=== PATIENT | female | born 1960 | race Caucasian/White ===

== ENCOUNTER 2019-07-10 17:00 | Emergency (ER) | payer SELFPAY ==
[~2019-07-10] VITALS: Ht 157.5 cm; Wt 63.0 kg
[2019-07-10 17:00] VITALS: BP 134/77
--- NOTE | 2019-07-10 17:32 | NUR ---
PT TAKEN TO RESTROOM VIA WHEELCHAIR.
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
[2019-07-10] MEDS ORDERED: NACL 0.9% 1,000 ML IV ONE (18:00)
--- NOTE | 2019-07-10 18:34 | NUR ---
PT RESTING IN BED, GIRLFRIEND AT BEDSIDE
[2019-07-10 18:40] LABS: BASOPHILS # (AUTO) 0.1 K/uL (0.00-0.22); BASOPHILS % (AUTO) 0.6 % (0.0-2.0); EOSINOPHILS % (AUTO) 0.4 % (0.0-4.0); HEMATOCRIT 40.1 % (36-48); HEMOGLOBIN 13.5 g/dL (12.0-16.0); LYMPHOCYTES # (AUTO) 1.9 K/uL (2.5-16.5); LYMPHOCYTES % (AUTO) 15.7 % (20.5-51.1); MEAN CORPUSCULAR HEMOGLOBIN 30 pg (27-31); MEAN CORPUSCULAR HGB CONC 34 g/dL (33-37); MONOCYTES # (AUTO) 0.6 K/uL (0.8-1.0); NEUTROPHILS # (AUTO) 9.3 K/uL (1.8-7.7); NEUTROPHILS % (AUTO) 78.3 % (42.2-75.2); PLATELET COUNT (AUTO) 287 K/uL (140-450); RED BLOOD CELL COUNT(AUTO) 4.45 MIL/uL (4.20-5.40); RED CELL DISTRIBUTION WIDTH 12.6 % (11.6-13.7); WHITE BLOOD COUNT (AUTO) 11.9 K/uL (4.8-10.8)
--- NOTE | 2019-07-10 19:00 | NUR ---
REPORT GIVEN TO FREDDIE SHORT FOR CONTINUATION OF CARE
[2019-07-10 19:10] LABS: ALBUMIN 4.1 g/dL (3.4-5.0); ANION GAP 15.3 (8-16); ASPARTATE AMINOTRANSFERASE 18 U/L (15-37); CARBON DIOXIDE 25.1 mmol/L (21-32); CHLORIDE 113 mmol/L (98-107); CREATININE 0.7 mg/dL (0.6-1.3); GFR ARICAN-AMERICAN 110 mL/min (>90); GLUCOSE 103 mg/dL (74-106); POTASSIUM 3.4 mmol/L (3.5-5.1); SODIUM SERUM 150 mmol/L (136-145); UREA NITROGEN, BLOOD 18 mg/dL (7-18)
[2019-07-10 19:12] LABS: ACETAMINOPHEN < 0.5 ug/ml (10-30)
[2019-07-10 19:18] LABS: SALICYLATE 4.6 mg/dL (2.8-20.0)
[2019-07-10 20:01] LABS: BARBITURATE, URINE NEG. ng/ml (NEG <=200); BENZODIAZEPINE, URINE NEG. ng/mL (NEG <=200); CANNABINOID, URINE NEG. ng/mL (NEG <=50); COCAINE, URINE NEG. ng/mL (NEG <=300); OPIATE, URINE NEG. ng/mL (NEG <=2000); PHENCYCLIDINE SCREEN,URINE POS. ng/mL (NEG <=25)
[2019-07-10 20:03] LABS: APPEARANCE,URINE CLEAR (CLEAR); BILIRUBIN,URINE NEGATIVE (NEGATIVE); BLOOD, URINE 1+ (NEGATIVE); COLOR,URINE YELLOW (YELLOW); LEUKOCYTE ESTERASE ,URINE NEGATIVE (NEGATIVE); NITRITE, URINE NEGATIVE (NEGATIVE); UGLUCOSE NEGATIVE (NEGATIVE)
[2019-07-10 20:19] LABS: TOTAL BILIRUBIN 0.3 mg/dL (0.0-1.0)
[2019-07-10 20:23] LABS: WBC,URINE NONE SEEN /HPF (0-5)
[2019-07-10 20:45] VITALS: BP 129/84
--- NOTE | 2019-07-10 20:45 | NUR ---
PT DISCHARGED WITH PAPERWORK. NO MEDICATION RX PROVIDED. EDUCATED PT REGARDING D/C DIAGNOSIS AND INSTRUCTIONS. PT VERBALIZED UNDERSTANDING OF TEACHING. TOLD PT TO FOLLOW UP WITH PCP AND WHEN TO RETURN TO ED. PT VSS. ALL QUESTIONS ANSWERED.
== END 2019-07-10 20:45 | disposition home or self-care (01) ==
LOC: MED 17:00
DX: F15.90 Other stimulant use, unspecified, uncomplicated (principal); E86.0 Dehydration; R40.4 Transient alteration of awareness; F17.210 Nicotine dependence, cigarettes, uncomplicated; Z71.6 Tobacco abuse counseling
CPT/HCPCS: 36415; 70450; 71045; 80053; 80305; 81001; 82550; 84484; 85025; 93005; 96360; 96361; 99284; G0480; G0482; J7030; Q0092

== ENCOUNTER 2019-07-20 23:35 | Emergency (ER) | payer SELFPAY ==
[~2019-07-20] VITALS: Ht 160 cm; Wt 65.8 kg
[2019-07-20 23:37] VITALS: BP 143/112
[2019-07-20] MEDS ORDERED: ALBUTEROL 0.083% 2.5 MG/3 ML NEBU INH ONE (23:45)
[2019-07-20] MEDS ORDERED: predniSONE 20 MG TAB PO ONE (23:45)
[2019-07-20] MEDS ORDERED: ALBUTEROL SULFATE/IPRATROPIU 3 ML SOL IH ONE (23:45)
--- NOTE | 2019-07-20 23:49 | NUR ---
Respiratory Therapist at bedside for respiratory intervention.
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
[2019-07-21] MEDS ORDERED: KETOROLAC 60 MG/2 ML VIAL IM ONE (00:20)
--- NOTE | 2019-07-21 00:20 | NUR ---
Dr. Zelaya examining patient.
--- NOTE | 2019-07-21 00:42 | NUR ---
PT STATES SOME RELIEF OF PAIN AFTER RECEIVING MEDICATION. 7/10 SHARP CHEST PAIN. PT RESTING IN BED CALM AND PLEASANT. VSS. WILL CONTINUE TO MONITOR.
--- NOTE | 2019-07-21 01:25 | NUR ---
Patient discharged with v/s stable. Written and verbal after care instructions given and explained. Patient alert, oriented and verbalized understanding of instructions. Ambulatory with steady gait. All questions addressed prior to discharge. ID band removed. Patient advised to follow up with PMD. Rx of MOTRIN AND PREDNISONE given. Patient educated on indication of medication including possible reaction and side effects. Opportunity to ask questions provided and answered.
== END 2019-07-21 01:25 | disposition home or self-care (01) ==
LOC: MED 23:35
DX: R07.89 Other chest pain (principal); R06.02 Shortness of breath; J45.909 Unspecified asthma, uncomplicated; F17.200 Nicotine dependence, unspecified, uncomplicated; Z98.890 Other specified postprocedural states
CPT/HCPCS: 94640; 96372; 99283; J1885; J7512; J7613; J7620; 93005

== ENCOUNTER 2019-07-21 19:16 | Emergency (ER) | payer SELFPAY ==
[~2019-07-21] VITALS: Ht 147.3 cm; Wt 66.7 kg
[2019-07-21 19:20] VITALS: BP 155/109
--- NOTE | 2019-07-21 19:30 | NUR ---
Note undone in EDM - 07/21/19 at 2018 by [facility] PT BIBA C/O SOB X 2 DAYS. LUNG SOUNDS CLEAR ALL THORUGHOUT. SPO2 98% 2LNC. NO RESP DISTRESS NOTED. PT RATES PAIN 10/10 AND DESCRIBES IT PRESSURE STABBING FEELING. VSS. DENIES ANY TURAMA OR INJURY OR FALLS. PT STATES HER PAIN LOCATION IS UNDERNEATH THE BREAST LINE. PT ALSO STATES SHE GETS SOB D/T PAIN. NKA. PMH: ASTHMA.
--- NOTE | 2019-07-21 19:30 | NUR ---
PT BIBA C/O SOB X 2 DAYS. LUNG SOUNDS CLEAR ALL THORUGHOUT. SPO2 98% 3LNC. NO RESP DISTRESS NOTED. PT RATES PAIN 10/10 AND DESCRIBES IT PRESSURE STABBING FEELING. VSS. DENIES ANY TURAMA OR INJURY OR FALLS. PT STATES HER PAIN LOCATION IS UNDERNEATH THE BREAST LINE. PT ALSO STATES SHE GETS SOB D/T PAIN. NKA. PMH: ASTHMA.
--- NOTE | 2019-07-21 19:50 | NUR ---
DR. NUNEZ BEDSIDE EVALUATING PT
[2019-07-21] MEDS ORDERED: KETOROLAC 60 MG/2 ML VIAL IM ONE (19:55)
--- NOTE | 2019-07-21 20:00 | NUR ---
XR AT BEDSIDE.
--- NOTE | 2019-07-21 20:29 | NUR ---
Patient being evaluated by DR. NUNEZ at bedside.
[2019-07-21] MEDS ORDERED: MORPHINE SULFATE 4 MG/ML SYR IM ONE (20:35)
--- NOTE | 2019-07-21 21:20 | NUR ---
Patient discharged with v/s stable. Written and verbal after care instructions given and explained. Patient alert, oriented and verbalized understanding of instructions. Ambulatory with steady gait. All questions addressed prior to discharge. ID band removed. Patient advised to follow up with PMD. Rx of NORCO given. Patient educated on indication of medication including possible reaction and side effects. Opportunity to ask questions provided and answered. TAXI VOUCHER AND CLOTHING PROVIDED AT THIS TIME.
[2019-07-21 21:21] VITALS: BP 155/109
== END 2019-07-21 21:20 | disposition home or self-care (01) ==
LOC: MED 19:16
DX: R07.89 Other chest pain (principal); J45.909 Unspecified asthma, uncomplicated; F17.200 Nicotine dependence, unspecified, uncomplicated; F15.90 Other stimulant use, unspecified, uncomplicated
CPT/HCPCS: 71045; 96372; 99283; J1885; J2270

== ENCOUNTER 2019-07-28 12:34 | Inpatient (IN) | payer MEDICAID ==
[~2019-07-28] VITALS: Ht 142.2 cm; Wt 63.5 kg
[2019-07-28 12:37] VITALS: BP 110/69
--- NOTE | 2019-07-28 12:42 | NUR ---
59 Y/O FEMALE BIBA WITH C/C OF CHEST PAIN 9/10 RADIATING TO THE UPPER EXTREMITIES X1 DAY. PER PT HAS NOT TAKEN ANY MEDICATIONS FOR THE CHEST PAIN, DENIES DRINKING OR HAVING ANY DRUGS. PT NKA. MEDICAL HX OF ASTHMA. MED PRN FOR ASTHMA. DENIES N/V/D. SIDE RAIL X1.
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
--- NOTE | 2019-07-28 12:48 | NUR ---
MD MACIEL AT BEDSIDE
[2019-07-28] MEDS ORDERED: KETOROLAC 30 MG/ML VIAL IVP ONE (12:55)
[2019-07-28] MEDS ORDERED: ASPIRIN 81 MG TAB.CHEW PO ONE (12:55)
[2019-07-28 13:54] LABS: ANION GAP 15.1 (8-16); CARBON DIOXIDE 24.2 mmol/L (21-32); CREATININE 0.6 mg/dL (0.6-1.3); POTASSIUM 3.3 mmol/L (3.5-5.1)
[2019-07-28 14:00] LABS: ALBUMIN 2.7 g/dL (3.4-5.0); TOTAL BILIRUBIN 0.4 mg/dL (0.0-1.0)
[2019-07-28 14:41] LABS: BASOPHILS # (AUTO) 0.1 K/uL (0.00-0.22); BASOPHILS % (AUTO) 0.6 % (0.0-2.0); EOSINOPHILS # (AUTO) 0.4 K/uL (0-0.4); EOSINOPHILS % (AUTO) 2.9 % (0.0-4.0); HEMATOCRIT 30.4 % (36-48); HEMOGLOBIN 10.2 g/dL (12.0-16.0); LYMPHOCYTES # (AUTO) 5.5 K/uL (2.5-16.5); LYMPHOCYTES % (AUTO) 42.2 % (20.5-51.1); MEAN CORPUSCULAR HEMOGLOBIN 30 pg (27-31); MEAN CORPUSCULAR HGB CONC 33 g/dL (33-37); MONOCYTES # (AUTO) 1.1 K/uL (0.8-1.0); MONOCYTES % (AUTO) 8.6 % (1.7-9.3); NEUTROPHILS # (AUTO) 5.9 K/uL (1.8-7.7); NEUTROPHILS % (AUTO) 45.7 % (42.2-75.2); PLATELET COUNT (AUTO) 424 K/uL (140-450); RED BLOOD CELL COUNT(AUTO) 3.34 MIL/uL (4.20-5.40); RED CELL DISTRIBUTION WIDTH 12.6 % (11.6-13.7)
[2019-07-28] MEDS ORDERED: ONDANSETRON 4 MG/2 ML VIAL IM/IVP PRN (15:40)
[2019-07-28] MEDS ORDERED: ZOLPIDEM 5 MG TAB PO PRN (15:40)
[2019-07-28] MEDS ORDERED: DOCUSATE SODIUM 100 MG GELCAP PO PRN (15:40)
[2019-07-28] MEDS ORDERED: ACETAMINOPHEN 325 MG TAB PO PRN (15:40)
[2019-07-28] MEDS ORDERED: LORazepam 2 MG/ML VIAL IM/IVP PRN (15:40)
--- NOTE | 2019-07-28 15:41 | NUR ---
[place] [employer] AT BEDSIDE
--- NOTE | 2019-07-28 15:50 | NUR ---
CALLED [employer] FOR FOOD TRAY THAT WAS ORDERED
[2019-07-28 16:06] LABS: APPEARANCE,URINE CLEAR (CLEAR); BILIRUBIN,URINE 1+ (NEGATIVE); BLOOD, URINE NEGATIVE (NEGATIVE); COLOR,URINE YELLOW (YELLOW); LEUKOCYTE ESTERASE ,URINE TRACE (NEGATIVE); NITRITE, URINE NEGATIVE (NEGATIVE); UGLUCOSE NEGATIVE (NEGATIVE)
[2019-07-28 16:12] LABS: BARBITURATE, URINE NEG. ng/ml (NEG <=200); BENZODIAZEPINE, URINE NEG. ng/mL (NEG <=200); CANNABINOID, URINE NEG. ng/mL (NEG <=50); COCAINE, URINE NEG. ng/mL (NEG <=300); OPIATE, URINE POS. ng/mL (NEG <=2000); PHENCYCLIDINE SCREEN,URINE POS. ng/mL (NEG <=25)
[2019-07-28 16:15] LABS: RBC,URINE 0-5 /HPF (0-5)
[2019-07-28] MEDS ORDERED: NITROGLYCERIN 0.4 MG TAB SL PRN (16:25)
[2019-07-28 16:27] LABS: PROTHROMBIN TIME 10.5 secs (10.8-13.4)
[2019-07-28 16:33] LABS: CHOL/HDL RATIO 5.3 (1-4.5); FREE T4 (FREE THYROXINE) 1.09 ng/dL (0.76-1.46); THYROID STIMULATING HORMONE 1.65 uIU/mL (0.34-3.74)
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
--- NOTE | 2019-07-28 16:36 | NUR ---
Patient will be admitted to care of DR HURD. Admited to TELEMETRY. Will go to [id number]. Belongings list completed. Report to PAULETTE FRAZIER .
[2019-07-28] MEDS ORDERED: ALBUTEROL SULFATE/IPRATROPIU 3 ML SOL IH PRN (16:45)
[2019-07-28 16:53] VITALS: BP 123/77
[2019-07-28] MEDS: NACL 0.9% 1,000 ML IV SCH (17:30)
[2019-07-28] MEDS ORDERED: POTASSIUM CHLORIDE 10 MEQ TABER PO SCH (17:30)
[2019-07-28] MEDS: HYDROcodone/APAP 5/325 MG 1 TAB TAB PO PRN (18:07)
--- NOTE | 2019-07-28 19:27 | NUR ---
Shift report given to booth cleaner nurse. Pt is in stable condition. Call light in reach
--- NOTE | 2019-07-28 19:30 | NUR ---
ASSUMED CARE OF PATIENT, AWAKE, ALERT AND ORIENTED. [place] [employer] AT BEDSIDE. PULLED OUT IV ACCESS AFTER. GOING TO BATHROOM. CARE BOARD UPDATED. PLAN OF CARE DISCUSSED NEEDS REINFORCEMENT. CALL LIGHT WITHIN REACH.
[2019-07-28 20:00] VITALS: BP 127/78
[2019-07-28] MEDS: METOPROLOL 25 MG TAB PO SCH (20:23)
--- NOTE | 2019-07-28 20:30 | NUR ---
NEW IN ACCESS INSERTED BY MANGLE ROLLER LINDA. DUE MEDS GIVEN. CALL LIGHT WITHIN REACH.
[2019-07-28] MEDS: MORPHINE SULFATE 2 MG/ML SYR IVP PRN (21:51)
[2019-07-28] MEDS ORDERED: FAMOTIDINE 20 MG TAB PO SCH (22:30)
--- NOTE | 2019-07-28 23:00 | NUR ---
SLEEPING MEDS GIVEN REQUESTED. SNACK GIVEN WELL.
--- NOTE | 2019-07-29 00:30 | NUR ---
VITAL SIGNS STABLE. CALL LIGHT WITHIN REACH. NO COMPLAINS. SLEEPING WELL.
[2019-07-29 01:02] VITALS: BP 105/65
[2019-07-29] MEDS: NACL 0.9% 1,000 ML IV SCH (01:38)
--- NOTE | 2019-07-29 02:00 | NUR ---
AWAKE. PAIN MEDICATION GIVEN ORDERED. CALL LIGHT WITHIN REACH.
[2019-07-29] MEDS: MORPHINE SULFATE 2 MG/ML SYR IVP PRN (02:01)
[2019-07-29 04:27] VITALS: BP 124/86
--- NOTE | 2019-07-29 04:29 | NUR ---
AWAKE, NO COMPLAINS. AFEBRILE. VITAL SIGNS STABLE. CALL LIGHT WITHIN REACH.
[2019-07-29] MEDS ORDERED: ATORVASTATIN 20 MG TAB PO SCH (09:00)
[2019-07-29] MEDS ORDERED: FAMOTIDINE 20 MG TAB PO SCH (09:00)
[2019-07-29] MEDS ORDERED: LISINOPRIL 5 MG TAB PO SCH (09:00)
[2019-07-29] MEDS ORDERED: KETOROLAC 15 MG/ML VIAL ONE (12:01)
[2019-07-29] MEDS ORDERED: MAG SULF 2000 MG/WATER PREMIX 50 ML IV ONE (12:40)
[2019-07-30] MEDS ORDERED: FAMOTIDINE 20 MG TAB ONE (03:40)
[2019-07-30] MEDS ORDERED: MAG SULF 2000 MG/WATER PREMIX 50 ML IV ONE (13:37)
--- NOTE | 2019-07-30 19:30 | NUR ---
RECEIVED BEDSIDE REPORT FROM AM SHIFT RN FOR PT'S CONTINUITY OF CARE. PT AAOX4, FAMILY MEMBERS AT BEDSIDE, IS ON ROOM AIR, HAS LEFT FA 24G WITH NS AT 100ML/HR. NOTED BILATERAL ARM EDEMA, MD AWARE. SAFETY MEASURES IN PLACE. CALL LIGHT WITHIN REACH. EXPLAINED TO PT AND FAMILY MEMBERS THE CIGAR BRANDER ROUTINE, THEY VERBALIZED UNDERSTANDING. WILL MONITOR PT THROUGHOUT SHIFT.
[2019-07-30 20:00] VITALS: BP 133/86
[2019-07-30 20:11] LABS: ANION GAP 14.1 (8-16); CARBON DIOXIDE 23.9 mmol/L (21-32); CREATININE 0.5 mg/dL (0.6-1.3); MAGNESIUM 1.6 mg/dL (1.8-2.4); PHOSPHORUS 3.6 mg/dL (2.5-4.9)
--- NOTE | 2019-07-30 21:05 | NUR ---
ADMINISTERED SCHEDULED PO MEDICATIONS ORDERED. PT C/O PAIN AND REQUESTED FOR SLEEP AID MEDICATION. ADMINISTERED PRN PO PAIN MEDICATION AND PO PRN SLEEP AID MED.
[2019-07-30] MEDS ORDERED: ZOLPIDEM 10 MG TAB ONE (21:18)
--- NOTE | 2019-07-30 22:00 | NUR ---
PT REQUESTED TO SHOWER. APPROVED FOR SHOWER ACTIVITY. PT WAS ASSISTED BY IT OPERATIONS SPECIALIST AND TOLERATED ACTIVITY WELL. IV INTACT AND PATENT.
[2019-07-31] VITALS: BP 119/72
--- NOTE | 2019-07-31 01:08 | NUR ---
PT C/O SHOULDER PAIN. ADMINISTERED PO PRN PAIN MEDICATION ORDERED. PT TOLERATED IT WELL.
[2019-07-31] MEDS: HYDROcodone/APAP 5/325 MG 1 TAB TAB PO PRN ×3 (01:23→10:02)
[2019-07-31] MEDS: MORPHINE SULFATE 2 MG/ML SYR IVP PRN (02:21)
--- NOTE | 2019-07-31 02:26 | NUR ---
PT YELLING OUT FOR NURSE, C/O INCREASE ARMS SWELLING AND INCREASING PAIN. NOTIFIED MD LEWIS WILL WAIT FOR REPEAT XRAY RESULTS. DECREASED IV FLUID TO 10 ML/HR.ELEVATED BOTH ARMS, APPLY HEATING PAD ON RIGHT ARM. ADMINISTERED PRN IVP PAIN MEDICATION ORDERED.
--- NOTE | 2019-07-31 02:54 | NUR ---
HEATING PAD IN PLACE. PT TEACHING GIVEN, AND REINFORCED TEACHING WITH ELEVATING BOTH ARMS. PT VERBALIZED UNDERSTANDING.
[2019-07-31 04:00] VITALS: BP 136/73
--- NOTE | 2019-07-31 05:35 | NUR ---
PT C/O RIGHT ARM PAIN. ADMINISTERED PRN PO PAIN MEDICATION ORDERED. ASSISTED PT TO THE RESTROOM. MADE PT COMFORTABLE. PT REQUESTING FOR MORPHINE AFTER PO PAIN MEDICATION, STATES HELPED RELIEVE PAIN WHEN IT WAS GIVEN EARLIER. PT TEACHING GIVEN REGARDING PAIN MEDICATION. PT VERBALIZED UNDERSTANDING. PT REQUESTED FOR SLING FOR RIGHT ARM/SHOULDER, NOTIFIED MD. PER MD, WILL WAIT FOR THE XRAY RESULT FIRST. NOTIFIED PT, VERBALIZED UNDERSTANDING.
--- NOTE | 2019-07-31 06:33 | NUR ---
PT TRANSFER TO MED/SURG, PER MD ORDER. EXPLAINED TO PT, VERBALIZED UNDERSTANDING. PT REQUESTED FOR MORPHINE IVP FOR PAIN. C/O INCREASING ARM SWELLING PAIN. WILL MEDICATE PT. WILL ENDORSE TO AM SHIFT RN FOR PT'S CONTINUITY OF CARE.
[2019-07-31] MEDS ORDERED: MORPHINE SULFATE 2 MG/ML SYR IVP PRN (06:50)
--- NOTE | 2019-07-31 07:20 | NUR ---
Received report from mini shifter nurse. Pt is in bed in stable condition. Call light in reach.
[2019-07-31 08:00] VITALS: BP 126/62
[2019-07-31] MEDS: ASPIRIN 81 MG TAB.CHEW PO SCH ×2 (08:50→10:05)
[2019-07-31] MEDS ORDERED: HYDR-5122 PO (09:43)
--- NOTE | 2019-07-31 10:00 | NUR ---
Pt is in bed instable condition. Call light in reach.
[2019-07-31] MEDS: METOPROLOL 25 MG TAB PO SCH ×2 (10:02→10:07)
[2019-07-31 10:29] LABS: BASOPHILS # (AUTO) 0.1 K/uL (0.00-0.22); BASOPHILS % (AUTO) 0.9 % (0.0-2.0); EOSINOPHILS # (AUTO) 0.4 K/uL (0-0.4); EOSINOPHILS % (AUTO) 3.3 % (0.0-4.0); HEMATOCRIT 28.6 % (36-48); HEMOGLOBIN 9.6 g/dL (12.0-16.0); LYMPHOCYTES # (AUTO) 4.5 K/uL (2.5-16.5); LYMPHOCYTES % (AUTO) 35.3 % (20.5-51.1); MEAN CORPUSCULAR HEMOGLOBIN 31 pg (27-31); MEAN CORPUSCULAR HGB CONC 34 g/dL (33-37); MEAN CORPUSCULAR VOLUME 91.9 fL (80-94); MONOCYTES % (AUTO) 7.6 % (1.7-9.3); NEUTROPHILS # (AUTO) 6.8 K/uL (1.8-7.7); NEUTROPHILS % (AUTO) 52.9 % (42.2-75.2); PLATELET COUNT (AUTO) 459 K/uL (140-450); RED BLOOD CELL COUNT(AUTO) 3.12 MIL/uL (4.20-5.40); RED CELL DISTRIBUTION WIDTH 12.8 % (11.6-13.7); WHITE BLOOD COUNT (AUTO) 12.8 K/uL (4.8-10.8)
[2019-07-31 10:37] LABS: BASOPHILS # (AUTO) 0.1 K/uL (0.00-0.22); BASOPHILS % (AUTO) 0.8 % (0.0-2.0); EOSINOPHILS # (AUTO) 0.6 K/uL (0-0.4); EOSINOPHILS % (AUTO) 4.1 % (0.0-4.0); HEMATOCRIT 28.7 % (36-48); HEMOGLOBIN 9.4 g/dL (12.0-16.0); LYMPHOCYTES # (AUTO) 5.6 K/uL (2.5-16.5); LYMPHOCYTES % (AUTO) 39.4 % (20.5-51.1); MEAN CORPUSCULAR HEMOGLOBIN 30 pg (27-31); MEAN CORPUSCULAR HGB CONC 33 g/dL (33-37); MEAN CORPUSCULAR VOLUME 91.2 fL (80-94); MONOCYTES % (AUTO) 7.2 % (1.7-9.3); NEUTROPHILS # (AUTO) 6.9 K/uL (1.8-7.7); NEUTROPHILS % (AUTO) 48.5 % (42.2-75.2); PLATELET COUNT (AUTO) 425 K/uL (140-450); RED BLOOD CELL COUNT(AUTO) 3.15 MIL/uL (4.20-5.40); RED CELL DISTRIBUTION WIDTH 12.9 % (11.6-13.7); WHITE BLOOD COUNT (AUTO) 14.3 K/uL (4.8-10.8)
[2019-07-31 11:06] LABS: ALBUMIN 2.7 g/dL (3.4-5.0); ANION GAP 13.7 (8-16); CARBON DIOXIDE 24.1 mmol/L (21-32); CREATININE 0.7 mg/dL (0.6-1.3); MAGNESIUM 1.7 mg/dL (1.8-2.4); PHOSPHORUS 3.2 mg/dL (2.5-4.9); POTASSIUM 3.8 mmol/L (3.5-5.1); TOTAL BILIRUBIN 0.3 mg/dL (0.0-1.0)
--- NOTE | 2019-07-31 12:00 | NUR ---
Pt is in bed instable condition. Call light in reach.
[2019-07-31] MEDS ORDERED: INFLUENZA VACCINE QUAD 0.5 ML SYR IMVAC PRN (12:25)
[2019-07-31] MEDS ORDERED: MAGNESIUM OXIDE 400 MG TAB PO SCH (12:30)
--- NOTE | 2019-07-31 13:00 | NUR ---
Pt is in bed instable condition. Call light in reach.
--- NOTE | 2019-07-31 14:00 | NUR ---
Pt was discharged today. Pt walked with a steady gait upon discharge. No complains of pain upon discharge. IV removed. Catheter intact. Discharge instructions given to patient. Pt will follow up with PCP. Skin intact. Bruises noted to chest. Arm sling put on right arm. Noted with right arm swelling. Prescription given to patient. Discharge instructions given to patient. Belongings with patient. Pt was accompanied by son upon discharge.
[2019-08-01 19:25] LABS: ANION GAP 12.7 (8-16); POTASSIUM 3.7 mmol/L (3.5-5.1)
[2019-08-01 19:26] LABS: ALBUMIN 2.4 g/dL (3.4-5.0); CREATININE 0.5 mg/dL (0.6-1.3); MAGNESIUM 1.7 mg/dL (1.8-2.4); PHOSPHORUS 3.1 mg/dL (2.5-4.9); TOTAL BILIRUBIN 0.3 mg/dL (0.0-1.0)
[2019-08-05 14:54] LABS: RED BLOOD CELL COUNT(AUTO) 3.16 MIL/uL (4.20-5.40); WHITE BLOOD COUNT (AUTO) 13.2 K/uL (4.8-10.8)
[2019-08-05 14:55] LABS: HEMATOCRIT 29.2 % (36-48); HEMOGLOBIN 9.4 g/dL (12.0-16.0); LYMPHOCYTES % (AUTO) 41.6 % (20.5-51.1); MEAN CORPUSCULAR HEMOGLOBIN 30 pg (27-31); MEAN CORPUSCULAR HGB CONC 32 g/dL (33-37); MEAN CORPUSCULAR VOLUME 92.2 fL (80-94); MONOCYTES % (AUTO) 4.7 % (1.7-9.3); NEUTROPHILS % (AUTO) 48.9 % (42.2-75.2); PLATELET COUNT (AUTO) 429 K/uL (140-450); RED CELL DISTRIBUTION WIDTH 13.1 % (11.6-13.7)
[2019-08-05 14:56] LABS: BASOPHILS # (AUTO) 0.1 K/uL (0.00-0.22); BASOPHILS % (AUTO) 0.8 % (0.0-2.0); EOSINOPHILS # (AUTO) 0.5 K/uL (0-0.4); LYMPHOCYTES # (AUTO) 5.5 K/uL (2.5-16.5); MONOCYTES # (AUTO) 0.6 K/uL (0.8-1.0); NEUTROPHILS # (AUTO) 6.4 K/uL (1.8-7.7)
== END 2019-07-31 14:40 | disposition home or self-care (01) | DRG 203 ==
LOC: MED 12:34 → MTU 15:38
PROVIDERS: ADMIT Family Medicine; ATTEND Family Medicine
DX: M94.0 Chondrocostal junction syndrome [Tietze] (principal); E43 Unspecified severe protein-calorie malnutrition; E87.8 Other disorders of electrolyte and fluid balance, not elsewhere classified; E87.6 Hypokalemia; E83.42 Hypomagnesemia; Z68.31 Body mass index [BMI] 31.0-31.9, adult; R59.1 Generalized enlarged lymph nodes; M13.88 Other specified arthritis, other site; J45.909 Unspecified asthma, uncomplicated
CPT/HCPCS: 36415; 71045; 73030; 73060; 73080; 73090; 73130; 76536; 80048; 80053; 80305; 81001; 82150; 83036; 83690; 83735; 83880; 84100; 84439; 84443; 84484; 85025; 85610; 85730; 87081; 87086; 93005; 93971; 96374; 96375; 99285; J0696; J1885; J2270; J3475; J7030; J7060; Q0092